=== PATIENT | female | born 1955 | race Caucasian/White ===

== ENCOUNTER 2017-06-25 04:12 | Emergency (ER) | payer BC ==
[~2017-06-25] VITALS: Ht 162.6 cm; Wt 70.3 kg
[~2017-06-25 04:12] MED LIST: PRA40; Z PO
[2017-06-25 04:19] VITALS: Ht 162.6 cm; Wt 70.3 kg
[2017-06-25 05:55] VITALS: BP 113/68
[2017-06-25 08:24] LABS: microscopic required? YES; urine erythrocyte 1+ (NEGATIVE)
== END 2017-06-25 05:55 | disposition home or self-care (01) ==
LOC: ED 04:12
PROVIDERS: Emergency Medicine
DX: J32.8 Other chronic sinusitis (principal)
CPT/HCPCS: 87804; J1885